=== PATIENT | female | born 1955 | race Caucasian/White ===

== ENCOUNTER 2016-07-14 11:28 | Day surgery (SDC) | payer OTHER ==
[~2016-07-14] VITALS: Ht 167.6 cm; Wt 83.0 kg
[~2016-07-14 11:28] MED LIST: 0.9% Sodium Chloride 1,000 ML IV SCH; ASPI-973 PO; ATOR20TA PO; KRIL500C PO; MAGN250T29 PO; MELO-259 PO; METO25TA6 PO; METO50TA3 PO; MULT-1065 PO; MV,C400T2 PO; PRAV80TA2 PO; Sodium Chloride LOK Flush 10 mL Syringe IV PRN; TRIA1TAB5 PO; UBID50TA3 PO; fentaNYL-PF 50 mCg/mL 2 mL Inj IVPUSH PRN
[2016-07-14 11:56] VITALS: BP 149/83; PULSE 64; RESP 16; O2SAT 97
[2016-07-14 13:45] VITALS: BP 142/77; PULSE 54; RESP 17; O2SAT 98
[2016-07-14 13:52] VITALS: BP 133/69; PULSE 48; RESP 15; O2SAT 96
[2016-07-14 14:02] VITALS: BP 138/74; PULSE 49; RESP 15; O2SAT 98
--- NOTE | 2016-07-15 00:07 | ENDO ---
[address] [address] ENDOSCOPY PROCEDURE PATIENT: SURINDER RAMOS : 1955 MR#: [id number] ADMIT: 07/14/2016 JOB ID: [id number] DATE OF PROCEDURE: 07/14/2016 PRIMARY PROVIDER: ARISTEO Disla. PROCEDURE: Colonoscopy with cold forceps polypectomy. INDICATIONS: A 60-year-old female who reports for colon cancer screening. EQUIPMENT: [employer]. SEDATION: 1. Versed 5 mg. 2. Fentanyl 125 mcg. COMPLICATIONS: None identified. BOWEL PREPARATION: Fair, adequate exam. PROCEDURE INFORMATION: After the risks and benefits were explained, written and verbal informed consent was obtained. The patient was brought into the endoscopy suite and placed into the left lateral decubitus position. Sedation was achieved using the above-stated medications with the addition of oxygen via nasal cannula. A digital rectal examination was accomplished. Moderate internal hemorrhoids were noted. The scope was introduced into the rectum and advanced under direct visualization to the cecum, as identified by the appendiceal orifice and ileocecal valve. The scope was slowly withdrawn to carefully examine the mucosa for any defects or lesions. Retroflexed views were accomplished in the rectum. The colon was decompressed. The scope was removed from the patient who tolerated the procedure well. FINDINGS: The patient had some scattered diverticula in the left colon. There was a diminutive rectal polyp, probably hyperplastic, removed with cold forceps. Retroflexed views otherwise were unremarkable. No other significant pathology throughout. ENDOSCOPIC DIAGNOSES: 1. Diverticulosis. 2. Hemorrhoids. 3. Colon polyp. RECOMMENDATIONS: 1. Await histopathology. 2. If hyperplastic, repeat colonoscopy in 10 years. If adenomatous, repeat in five years.
--- NOTE | 2016-07-15 13:04 | PATH ---
SURGICAL PATHOLOGY Attending Physician:Hi Somers CASE STATUS: Signed Out PATIENT NAME: SURINDER RAMOS PID: [id number] : 1955 DATE COLLECTED:07/14/2016 20:22 SPECIMEN: Rectum, Biopsy CLINICAL HISTORY: 1). RECTAL POLYP X1 FINAL DIAGNOSIS: 1.RECTAL POLYP: HYPERPLASTIC POLYP. ICD10 CODE D12.6 GROSS DESCRIPTION: The specimen is received in one formalin filled container labeled with the patient's name, sublabeled "rectal polyp x1" and consists of a 0.3 x 0.3 x 0.2 CM portion of tissue which is entirely submitted in one cassette. 07/14/2016 DAC MICRO DESCRIPTION: See diagnosis. ICD-9 CODES: CPT CODES: 1: 28095 Electronically Signed Out Stewart Moran MD [facility] Pathology [facility] [address], [place] [address] Technical component performed at [facility], [address] [place] [address] Ave[address], [address]
== END 2016-07-14 23:59 | disposition home or self-care (01) ==
LOC: END 11:28
PROVIDERS: ATTEND Internal Medicine Gastroenterology
DX: Z12.11 Encounter for screening for malignant neoplasm of colon (principal); K62.1 Rectal polyp; K57.30 Diverticulosis of large intestine without perforation or abscess without bleeding; K64.8 Other hemorrhoids; Z83.71 Family history of colonic polyps; I10 Essential (primary) hypertension; E78.5 Hyperlipidemia, unspecified; Z87.891 Personal history of nicotine dependence; Z79.82 Long term (current) use of aspirin
CPT/HCPCS: 45380; G0500; J2250; J3010; J7030